=== PATIENT | male | born 1960 | race Hispanic/Latino ===

== ENCOUNTER 2021-11-06 09:04 | Emergency (ER) | payer MEDICAID, OTHER ==
[~2021-11-06] VITALS: Ht 170.2 cm; Wt 72.6 kg
[2021-11-06 09:41] LABS: HEMATOCRIT 44.2 % (42-54); LYMPHOCYTES % (AUTO) 18.4 % (21.0-51.0); MEAN CORPUSCULAR HGB CONC 33.9 g/dL (32.0-36.0); MEAN CORPUSCULAR VOLUME 97.4 fL (79-99); MONOCYTES % (AUTO) 9.6 % (3.0-13.0); NEUTROPHILS % (AUTO) 69.7 % (40.0-77.0); PLATELET COUNT (AUTO) 308 K/uL (130-400); RED BLOOD CELL COUNT(AUTO) 4.54 MIL/uL (4.50-6.20); RED CELL DISTRIBUTION WIDTH 13.7 % (11.0-15.5); WHITE BLOOD COUNT (AUTO) 8.9 K/uL (4.8-10.8)
[2021-11-06 09:52] LABS: CREATININE 0.8 mg/dL (0.5-1.5); POTASSIUM 3.9 mmol/L (3.5-5.1)
[2021-11-06 09:55] LABS: INR 0.96 (0.85-1.15); PROTHROMBIN TIME 10.5 SEC (9.6-11.6)
[2021-11-06 09:56] LABS: PARTIAL THROMBOPLASTIN TIME 30.5 SEC (26.3-35.5)
[2021-11-06 09:57] LABS: ALBUMIN 3.7 g/dL (3.5-5.0); BILIRUBIN,TOTAL 0.2 mg/dL (0.2-1.0); TOTAL PROTEIN, SERUM 7.7 g/dL (6.0-8.3)
[2021-11-06] MEDS ORDERED: ACETAMINOPHEN 500 MG TABLET PO ONE (10:00)
[2021-11-06] MEDS ORDERED: GUAIFENESIN-DM 200/20 MG 10 ML PO ONE (10:30)
[2021-11-06] MEDS ORDERED: AZITHROMYCIN 250 MG TABLET PO ONE (10:30)
[2021-11-06] MEDS ORDERED: ACET-66 PO (10:43)
[2021-11-06] MEDS ORDERED: IBUP-2070 PO (10:43)
[2021-11-06] MEDS ORDERED: D-ME118S47 PO (10:43)
[2021-11-06] MEDS ORDERED: OSEL75 PO (10:43)
[2021-11-06 10:57] VITALS: BP 104/69
[2021-11-06] MEDS ORDERED: OSELTAMIVIR PHOSPHATE 75 MG CAP PO SCH (11:00)
== END 2021-11-06 11:15 | disposition home or self-care (01) ==
LOC: EDH 09:04
DX: J10.1 Influenza due to other identified influenza virus with other respiratory manifestations (principal); J44.9 Chronic obstructive pulmonary disease, unspecified; Z20.822 Contact with and (suspected) exposure to COVID-19; E05.90 Thyrotoxicosis, unspecified without thyrotoxic crisis or storm; F17.200 Nicotine dependence, unspecified, uncomplicated
CPT/HCPCS: 36415; 71045; 80053; 83605; 84484; 85025; 85610; 85730; 87040 ×2; 87635; 87804 ×2; 93005; 99285; C9803

== ENCOUNTER → 2022-01-22 | Outpatient (CLI) | payer MEDICAID ==
[~2022-01-22] MED LIST: ACET-66 PO; D-ME118S47 PO; IBUP-2070 PO; OSEL75 PO
== END | disposition home or self-care (01) ==
LOC: RAH 12:55
DX: M47.816 Spondylosis without myelopathy or radiculopathy, lumbar region (principal); M54.50 Low back pain, unspecified; J44.9 Chronic obstructive pulmonary disease, unspecified; D84.81 Immunodeficiency due to conditions classified elsewhere
CPT/HCPCS: 72100

== ENCOUNTER → 2022-11-25 | Outpatient (CLI) | payer MEDICAID | END | disposition home or self-care (01) | LOC: SHCH 14:39 | PROVIDERS: ATTEND Internal Medicine Cardiovascular Disease | DX: I25.10 Atherosclerotic heart disease of native coronary artery without angina pectoris (principal); I73.9 Peripheral vascular disease, unspecified | CPT/HCPCS: 93925 ==

== ENCOUNTER → 2023-03-18 | Outpatient (CLI) | payer MEDICAID ==
[~2023-03-18] VITALS: Ht 167.6 cm; Wt 59.6 kg
[~2023-03-18] MED LIST changes: +ADVAIR IH; +ATORVASTATIN PO; +BROM118S48 PO; -D-ME118S47 PO; +GABA800T9 PO; +LEVO112C4 PO
[2023-03-18 11:31] LABS: BASOPHILS # (AUTO) 0.08 K/uL (0.00-0.20); BASOPHILS % (AUTO) 0.8 % (0.0-5.0); EOSINOPHILS # (AUTO) 0.95 K/uL (0.00-0.70); EOSINOPHILS % (AUTO) 9.7 % (0.0-8.0); HEMATOCRIT 46.9 % (42-54); IMMATURE GRANULOCYTE ABSOLUTE 0.02 K/uL (0-1); LYMPHOCYTES # (AUTO) 3.4 K/uL (1.0-4.8); LYMPHOCYTES % (AUTO) 34.1 % (21.0-51.0); MEAN CORPUSCULAR HEMOGLOBIN 34.4 pg (27.0-33.0); MEAN CORPUSCULAR HGB CONC 33.7 g/dL (32.0-36.0); MEAN CORPUSCULAR VOLUME 102.2 fL (79-99); MONOCYTES % (AUTO) 10.2 % (3.0-13.0); NEUTROPHILS # (AUTO) 4.4 K/uL (1.8-7.7); PLATELET COUNT (AUTO) 362 K/uL (130-400); RED BLOOD CELL COUNT(AUTO) 4.59 MIL/uL (4.50-6.20); RED CELL DISTRIBUTION WIDTH 14.3 % (11.0-15.5); WHITE BLOOD COUNT (AUTO) 9.8 K/uL (4.8-10.8)
[2023-03-18 11:35] VITALS: BP 108/69; PULSE 63; RESP 18
[2023-03-18 11:41] LABS: CREATININE 0.9 mg/dL (0.5-1.5); POTASSIUM 4.4 mmol/L (3.5-5.1)
[2023-03-18 11:42] LABS: APPEARANCE,URINE CLEAR (CLEAR); BILIRUBIN,URINE NEGATIVE (NEGATIVE); COLOR,URINE LIGHT-YELLOW (YELLOW); GLUCOSE, URINE (UA) 200 mg/dL (NEGATIVE); KETONES,URINE NEGATIVE (NEGATIVE); LEUKOCYTE ESTERASE ,URINE 250 Leu/uL (NEGATIVE); NITRATE,URINE NEGATIVE (NEGATIVE); OCCULT BLOOD,URINE SMALL (NEGATIVE); PROTEIN,URINE 20 mg/dL (NEGATIVE); UROBILINOGEN,URINE 0.2 mg/dL (0.2-1.0)
[2023-03-18 11:53] LABS: ADD UA MICROSCOPIC YES; INR < 0.93 (0.85-1.15); PROTHROMBIN TIME 10.3 SEC (9.6-11.6)
[2023-03-18 11:54] LABS: PARTIAL THROMBOPLASTIN TIME 27.4 SEC (26.3-35.5)
[2023-03-18 11:58] LABS: B-TYPE NATRIURETIC PEPTIDE 5 pg/mL (0-100)
[2023-03-18 12:00] LABS: BACTERIA,URINE RARE /HPF (None Seen); MUCUS,URINE RARE LPF (None Seen); WBC,URINE 51-100 /HPF (0-1)
== END | disposition home or self-care (01) ==
LOC: EDSTATUS 10:00 → DAH 10:00
PROVIDERS: ATTEND Internal Medicine Cardiovascular Disease
DX: Z01.818 Encounter for other preprocedural examination (principal); I25.10 Atherosclerotic heart disease of native coronary artery without angina pectoris; M47.814 Spondylosis without myelopathy or radiculopathy, thoracic region; I70.0 Atherosclerosis of aorta
CPT/HCPCS: 36415; 71045; 80048; 81001; 83880; 85025; 85610; 85730; 87088; 93005

== ENCOUNTER 2023-05-04 07:10 | Observation (INO) | payer MEDICAID ==
[2023-04-29 11:45] VITALS: BP 112/79; PULSE 75; RESP 18
[2023-04-29 11:47] LABS: BASOPHILS # (AUTO) 0.12 K/uL (0.00-0.20); BASOPHILS % (AUTO) 1.2 % (0.0-5.0); EOSINOPHILS # (AUTO) 0.73 K/uL (0.00-0.70); HEMATOCRIT 48.8 % (42-54); IMMATURE GRANULOCYTE ABSOLUTE 0.04 K/uL (0-1); LYMPHOCYTES # (AUTO) 3.8 K/uL (1.0-4.8); LYMPHOCYTES % (AUTO) 36.3 % (21.0-51.0); MEAN CORPUSCULAR HEMOGLOBIN 34.1 pg (27.0-33.0); MEAN CORPUSCULAR HGB CONC 33.4 g/dL (32.0-36.0); MEAN CORPUSCULAR VOLUME 102.1 fL (79-99); MONOCYTES # (AUTO) 1.1 K/uL (0.1-1.0); MONOCYTES % (AUTO) 10.8 % (3.0-13.0); NEUTROPHILS # (AUTO) 4.6 K/uL (1.8-7.7); NEUTROPHILS % (AUTO) 44.3 % (40.0-77.0); PLATELET COUNT (AUTO) 369 K/uL (130-400); RED BLOOD CELL COUNT(AUTO) 4.78 MIL/uL (4.50-6.20); RED CELL DISTRIBUTION WIDTH 14.6 % (11.0-15.5); WHITE BLOOD COUNT (AUTO) 10.4 K/uL (4.8-10.8)
[2023-04-29 11:48] LABS: APPEARANCE,URINE CLEAR (CLEAR); BILIRUBIN,URINE NEGATIVE (NEGATIVE); COLOR,URINE LIGHT-YELLOW (YELLOW); GLUCOSE, URINE (UA) NEGATIVE (NEGATIVE); KETONES,URINE NEGATIVE (NEGATIVE); LEUKOCYTE ESTERASE ,URINE 250 Leu/uL (NEGATIVE); NITRATE,URINE NEGATIVE (NEGATIVE); OCCULT BLOOD,URINE SMALL (NEGATIVE); PH,URINE 5.5 (5.0-8.0); PROTEIN,URINE 20 mg/dL (NEGATIVE); UROBILINOGEN,URINE 0.2 mg/dL (0.2-1.0)
[2023-04-29 11:49] LABS: ADD UA MICROSCOPIC YES
[2023-04-29 11:50] LABS: BACTERIA,URINE RARE /HPF (None Seen); MUCUS,URINE RARE LPF (None Seen); WBC,URINE 51-100 /HPF (0-1)
[2023-04-29 11:59] LABS: INR < 0.93 (0.85-1.15); PROTHROMBIN TIME 10.1 SEC (9.6-11.6)
[2023-04-29 12:00] LABS: PARTIAL THROMBOPLASTIN TIME 27.6 SEC (26.3-35.5)
[2023-04-29 12:02] LABS: CREATININE 0.9 mg/dL (0.5-1.5); POTASSIUM 3.5 mmol/L (3.5-5.1)
[2023-04-29 12:21] LABS: B-TYPE NATRIURETIC PEPTIDE 10 pg/mL (0-100)
[~2023-05-04] VITALS: Ht 167.6 cm; Wt 58.1 kg
[2023-05-04] VITALS (15 sets, daily range): BP systolic 86–145; BP diastolic 34–93; PULSE 39–69; RESP 14–28; O2SAT 97
[~2023-05-04 07:10] MED LIST changes: -ACET-66 PO; +ATOR10 PO; -ATORVASTATIN PO; -BROM118S48 PO; -IBUP-2070 PO; -OSEL75 PO
[2023-05-04] MEDS ORDERED: 0.9%NACL 1000ML 1,000 ML IV ONE (07:51)
[2023-05-04] MEDS ORDERED: SODIUM BICARB 50MEQ 50ML VIAL 50 ML ONE (11:53)
[2023-05-04] MEDS ORDERED: LIDOCAINE HCL 400MG/20ML VIAL ONE (11:53)
[2023-05-04] MEDS ORDERED: HEPARIN 10,000 UNIT/10ML (1,000 UNIT/ML) VIAL ONE (11:54)
[2023-05-04] MEDS ORDERED: MEPERIDINE-PF 25 MG/ML SYG ONE ×3 (11:54→13:29)
[2023-05-04] MEDS ORDERED: MIDAZOLAM HCL 1 MG/ML 2ML VIAL ONE ×3 (11:54→13:29)
[2023-05-04] MEDS ORDERED: NICARDIPINE 25MG INJ IV ONE (12:03)
[2023-05-04] MEDS ORDERED: IOHEXOL 350 MG/ML 100ML INFUS..BTL IV ONE (12:05)
[2023-05-04] MEDS ORDERED: ATROPINE 1MG SYG IVP ONE (13:29)
[2023-05-04] MEDS ORDERED: ASPIRIN 325MG EC TAB PO ONE (14:15)
[2023-05-04] MEDS ORDERED: TICAGRELOR 90 MG TABLET ONE (14:15)
[2023-05-04] MEDS ORDERED: EPTIFIBATIDE 2 MG/ML 10 ML VIAL IVP ONE (14:16)
[2023-05-04] MEDS ORDERED: EPTIFIBATIDE 75MG/100ML BOTTLE 100 ML IV ONE (14:16)
[2023-05-04] MEDS ORDERED: EPTIFIBATIDE 75MG/100ML BOTTLE 100 ML IV SCH (14:30)
[2023-05-04] MEDS ORDERED: 0.9%NACL 1000ML 1,000 ML IV SCH (14:30)
[2023-05-04] MEDS ORDERED: ONDANSETRON 4MG INJ IVP ONE (18:00)
[2023-05-04] MEDS ORDERED: DIPHENHYDRAMINE HCL 25 MG CAPSULE PO PRN (18:30)
[2023-05-04] MEDS ORDERED: 0.9% NACL 500ML IV.SOLN 500 ML IV SCH (18:30)
[2023-05-04] MEDS ORDERED: MAG/ALUM/SIMETH 30 ML UDCUP PO PRN (18:30)
[2023-05-04] MEDS ORDERED: NITROGLYCERIN 0.4 MG SL TAB SL PRN (18:30)
[2023-05-04] MEDS ORDERED: LACTULOSE 20 GM/30 ML UDCUP PO PRN (18:30)
[2023-05-04] MEDS ORDERED: DiphenhydrAMINE HCL 50 MG/ML VIAL IV PRN (18:30)
[2023-05-04] MEDS ORDERED: ACETAMINOPHEN 325 MG TAB PO PRN ×2 (18:30)
[2023-05-04] MEDS ORDERED: ONDANSETRON 4MG INJ IV PRN (18:30)
[2023-05-04] MEDS ORDERED: GUAIFENESIN-DM 200/20 MG 10 ML PO PRN (18:30)
[2023-05-04 18:52] LABS: BASOPHILS # (AUTO) 0.09 K/uL (0.00-0.20); BASOPHILS % (AUTO) 0.4 % (0.0-5.0); EOSINOPHILS # (AUTO) 0.02 K/uL (0.00-0.70); EOSINOPHILS % (AUTO) 0.1 % (0.0-8.0); IMMATURE GRANULOCYTE ABSOLUTE 0.19 K/uL (0-1); LYMPHOCYTES % (AUTO) 9.3 % (21.0-51.0); MEAN CORPUSCULAR VOLUME 103.3 fL (79-99); MONOCYTES # (AUTO) 0.8 K/uL (0.1-1.0); MONOCYTES % (AUTO) 3.8 % (3.0-13.0); NEUTROPHILS # (AUTO) 18.8 K/uL (1.8-7.7); NEUTROPHILS % (AUTO) 85.5 % (40.0-77.0); PLATELET COUNT (AUTO) 425 K/uL (130-400); RED BLOOD CELL COUNT(AUTO) 4.26 MIL/uL (4.50-6.20); RED CELL DISTRIBUTION WIDTH 14.8 % (11.0-15.5)
[2023-05-04] MEDS ORDERED: NACL IV ONE (19:00)
[2023-05-04 19:01] LABS: CREATININE 0.9 mg/dL (0.5-1.5); MAGNESIUM 1.9 mg/dL (1.80-2.40); POTASSIUM 4.7 mmol/L (3.5-5.1)
[2023-05-04] MEDS ORDERED: PROCHLORPERAZINE 10MG/2ML INJ IV ONE (19:30)
[2023-05-04] MEDS ORDERED: LORAZEPAM 2 MG/ML 1 ML VIAL IVP ONE (20:30)
[2023-05-04] MEDS: TICAGRELOR 90 MG TABLET PO SCH (20:41)
[2023-05-04] MEDS: FAMOTIDINE 20MG TAB PO SCH (20:41)
[2023-05-04] MEDS ORDERED: FAMOTIDINE 20MG VIAL IV PRN (21:00)
[2023-05-04] MEDS ORDERED: Gabapentin 800 MG PO SCH (21:00)
[2023-05-04] MEDS ORDERED: ATORVASTATIN 10 MG TABLET PO SCH (21:00)
[2023-05-04] MEDS ORDERED: ADVAIR IH SCH (21:00)
[2023-05-05] VITALS (8 sets, daily range): BP systolic 81–100; BP diastolic 45–67; PULSE 58–81; RESP 16–24; O2SAT 97
[2023-05-05] MEDS ORDERED: LEVOTHYROXINE 112 MCG TABLET PO SCH (06:30)
[2023-05-05 06:51] LABS: BASOPHILS # (AUTO) 0.06 K/uL (0.00-0.20); BASOPHILS % (AUTO) 0.4 % (0.0-5.0); EOSINOPHILS % (AUTO) 0.7 % (0.0-8.0); HEMATOCRIT 41.4 % (42-54); IMMATURE GRANULOCYTE ABSOLUTE 0.05 K/uL (0-1); LYMPHOCYTES # (AUTO) 3.1 K/uL (1.0-4.8); LYMPHOCYTES % (AUTO) 22.1 % (21.0-51.0); MEAN CORPUSCULAR HEMOGLOBIN 33.4 pg (27.0-33.0); MEAN CORPUSCULAR HGB CONC 34.3 g/dL (32.0-36.0); MEAN CORPUSCULAR VOLUME 97.4 fL (79-99); MONOCYTES # (AUTO) 1.4 K/uL (0.1-1.0); MONOCYTES % (AUTO) 10.2 % (3.0-13.0); NEUTROPHILS # (AUTO) 9.3 K/uL (1.8-7.7); NEUTROPHILS % (AUTO) 66.2 % (40.0-77.0); PLATELET COUNT (AUTO) 435 K/uL (130-400); RED BLOOD CELL COUNT(AUTO) 4.25 MIL/uL (4.50-6.20); RED CELL DISTRIBUTION WIDTH 14.2 % (11.0-15.5); WHITE BLOOD COUNT (AUTO) 14.1 K/uL (4.8-10.8)
[2023-05-05 07:12] LABS: MAGNESIUM 1.9 mg/dL (1.80-2.40); PHOSPHORUS 3.1 mg/dL (2.5-4.9); POTASSIUM 3.7 mmol/L (3.5-5.1)
[2023-05-05] MEDS ORDERED: ASPIRIN 81MG CHEW TAB PO SCH (09:00)
[2023-05-05] MEDS: TICAGRELOR 90 MG TABLET PO SCH (09:28)
[2023-05-05] MEDS: FAMOTIDINE 20MG TAB PO SCH (09:28)
[2023-05-05] MEDS ORDERED: ASPI-1005 PO (11:27)
[2023-05-05] MEDS ORDERED: TICA90TA PO (11:27)
[2023-05-05] MEDS ORDERED: ATORVASTATIN 20 MG TABLET PO SCH (21:00)
== END 2023-05-05 12:35 | disposition home or self-care (01) ==
LOC: DAH 07:10 → DAHIP 07:11 → 2DH 15:04
PROVIDERS: ADMIT Internal Medicine; ATTEND Internal Medicine
DX: I25.119 Atherosclerotic heart disease of native coronary artery with unspecified angina pectoris (principal); I95.81 Postprocedural hypotension; E78.5 Hyperlipidemia, unspecified; E03.9 Hypothyroidism, unspecified; M54.16 Radiculopathy, lumbar region; I10 Essential (primary) hypertension; E55.9 Vitamin D deficiency, unspecified; J44.9 Chronic obstructive pulmonary disease, unspecified; F32.A Depression, unspecified; F17.210 Nicotine dependence, cigarettes, uncomplicated; Z79.82 Long term (current) use of aspirin; Z98.890 Other specified postprocedural states
CPT/HCPCS: 80048 ×3; 83880; 85025 ×3; 85610; 85730; 87088; 81001; 36415 ×3; 71045; 93005 ×2; 92978; 92979; 0715T; 93458; 93571; 96374; 96375; 83735 ×2; 85347; 82948 ×2; 84100; 84484; 80061; C1769 ×3; C1887 ×2; C1725; C1874 ×3; A4649; C1894; C1761; C1753; Q9965 ×2; G0378 ×19; J3490 ×3; J7030; J0461; J0780; J1644 ×3; J2250 ×3; J2405; J2060; J1327 ×2; J2175 ×3; Q9967; A4215; A4223 ×3; A4222; A4221; A4663; A4216; A4606; C9600; C9601; 99156; 99157

== ENCOUNTER → 2023-07-21 | Outpatient (CLI) | payer MEDICAID ==
[~2023-07-21] MED LIST changes: +ASPI-1005 PO; +TICA90TA PO
== END | disposition home or self-care (01) ==
LOC: SHCH 12:56
PROVIDERS: ATTEND Internal Medicine Cardiovascular Disease
DX: I25.10 Atherosclerotic heart disease of native coronary artery without angina pectoris (principal); I10 Essential (primary) hypertension
CPT/HCPCS: 93306

== ENCOUNTER 2023-10-02 12:50 | Emergency (ER) | payer MEDICAID ==
[~2023-10-02] VITALS: Ht 165.1 cm; Wt 59.0 kg
[2023-10-02 13:57] LABS: BASOPHILS % (AUTO) 0.9 % (0.0-5.0); HEMATOCRIT 40.9 % (42-54); IMMATURE GRANULOCYTE ABSOLUTE 0.03 K/uL (0-1); LYMPHOCYTES # (AUTO) 2.9 K/uL (1.0-4.8); LYMPHOCYTES % (AUTO) 25.6 % (21.0-51.0); MEAN CORPUSCULAR VOLUME 96.9 fL (79-99); MONOCYTES # (AUTO) 1.4 K/uL (0.1-1.0); MONOCYTES % (AUTO) 12.4 % (3.0-13.0); NEUTROPHILS % (AUTO) 52.8 % (40.0-77.0); PLATELET COUNT (AUTO) 555 K/uL (130-400); RED BLOOD CELL COUNT(AUTO) 4.22 MIL/uL (4.50-6.20); RED CELL DISTRIBUTION WIDTH 14.3 % (11.0-15.5); WHITE BLOOD COUNT (AUTO) 11.3 K/uL (4.8-10.8)
[2023-10-02 14:10] LABS: APPEARANCE,URINE TURBID (CLEAR); BILIRUBIN,URINE MODERATE mg/dL (NEGATIVE); GLUCOSE, URINE (UA) 100 mg/dL (NEGATIVE); KETONES,URINE 5 mg/dL (NEGATIVE); LEUKOCYTE ESTERASE ,URINE MODERATE Leu/uL (NEGATIVE); NITRATE,URINE POSITIVE (NEGATIVE); OCCULT BLOOD,URINE LARGE (NEGATIVE); PH,URINE 6.5 (5.0-8.0); PROTEIN,URINE >=300 mg/dL (NEGATIVE); UROBILINOGEN,URINE >=8.0 mg/dL (0.2-1.0)
[2023-10-02 14:16] LABS: CREATININE 0.9 mg/dL (0.5-1.3); POTASSIUM 4.2 mmol/L (3.5-5.1)
[2023-10-02 14:17] LABS: ADD UA MICROSCOPIC YES; COLOR,URINE RED (YELLOW)
[2023-10-02 14:19] LABS: RBC,URINE TNTC /HPF (0-1)
[2023-10-02 14:20] LABS: BACTERIA,URINE Moderate /HPF (None Seen); WBC,URINE >100 /HPF (0-1)
[2023-10-02 14:20] LABS: ALBUMIN 2.8 g/dL (3.5-5.0); BILIRUBIN,TOTAL 0.3 mg/dL (0.2-1.0); TOTAL PROTEIN, SERUM 7.2 g/dL (6.0-8.3)
[2023-10-02 14:21] LABS: SQUAMOUS EPITHELIAL CELL,UR Few /HPF (0-2)
[2023-10-02 15:23] VITALS: BP 143/78; PULSE 73; RESP 18; O2SAT 99
[2023-10-02] MEDS: KETOROLAC 30MG VIAL (30MG/ML) IM ONE (15:41)
[2023-10-02] MEDS ORDERED: NAPR-1023 PO (15:50)
[2023-10-02] MEDS ORDERED: PHEN-847 PO (15:50)
[2023-10-02] MEDS ORDERED: DOXY100C5 PO (15:50)
== END 2023-10-02 16:11 | disposition home or self-care (01) ==
LOC: EDH 12:50
DX: N39.0 Urinary tract infection, site not specified (principal); E78.5 Hyperlipidemia, unspecified; F17.200 Nicotine dependence, unspecified, uncomplicated; Z79.82 Long term (current) use of aspirin; Z79.899 Other long term (current) drug therapy; Z98.890 Other specified postprocedural states
CPT/HCPCS: 99283; 80053; 85025; 87088; 81001; 36415; 96372; J1885

== ENCOUNTER → 2023-10-05 | Outpatient (CLI) | payer MEDICAID ==
[~2023-10-05] MED LIST changes: +DOXY100C5 PO; +NAPR-1023 PO; +PHEN-847 PO
== END | disposition home or self-care (01) ==
LOC: RAH 09:57
DX: R09.89 Other specified symptoms and signs involving the circulatory and respiratory systems (principal)
CPT/HCPCS: 93925

== ENCOUNTER 2023-11-06 11:23 | Emergency (ER) | payer MEDICAID ==
[~2023-11-06] VITALS: Ht 165.1 cm; Wt 59.0 kg
[2023-11-06 12:05] LABS: BASOPHILS # (AUTO) 0.11 K/uL (0.00-0.20); BASOPHILS % (AUTO) 0.7 % (0.0-5.0); EOSINOPHILS # (AUTO) 0.84 K/uL (0.00-0.70); EOSINOPHILS % (AUTO) 5.6 % (0.0-8.0); HEMATOCRIT 35.2 % (42-54); IMMATURE GRANULOCYTE ABSOLUTE 0.06 K/uL (0-1); LYMPHOCYTES # (AUTO) 3.3 K/uL (1.0-4.8); MEAN CORPUSCULAR HEMOGLOBIN 30.4 pg (27.0-33.0); MEAN CORPUSCULAR HGB CONC 33.2 g/dL (32.0-36.0); MEAN CORPUSCULAR VOLUME 91.4 fL (79-99); MONOCYTES # (AUTO) 1.5 K/uL (0.1-1.0); MONOCYTES % (AUTO) 9.6 % (3.0-13.0); NEUTROPHILS # (AUTO) 9.3 K/uL (1.8-7.7); NEUTROPHILS % (AUTO) 61.7 % (40.0-77.0); PLATELET COUNT (AUTO) 647 K/uL (130-400); RED BLOOD CELL COUNT(AUTO) 3.85 MIL/uL (4.50-6.20); RED CELL DISTRIBUTION WIDTH 14.6 % (11.0-15.5)
[2023-11-06 12:07] LABS: APPEARANCE,URINE TURBID (CLEAR); BILIRUBIN,URINE NEGATIVE (NEGATIVE); COLOR,URINE BROWN (YELLOW); GLUCOSE, URINE (UA) NEGATIVE (NEGATIVE); KETONES,URINE NEGATIVE (NEGATIVE); LEUKOCYTE ESTERASE ,URINE 500 Leu/uL (NEGATIVE); NITRATE,URINE NEGATIVE (NEGATIVE); OCCULT BLOOD,URINE LARGE (NEGATIVE); PH,URINE 6.5 (5.0-8.0); PROTEIN,URINE 300 mg/dL (NEGATIVE); UROBILINOGEN,URINE 0.2 mg/dL (0.2-1.0)
[2023-11-06 12:15] LABS: CREATININE 1.2 mg/dL (0.5-1.3); POTASSIUM 4.2 mmol/L (3.5-5.1)
[2023-11-06 12:17] LABS: INR <= 0.93 (0.85-1.15); PROTHROMBIN TIME 10.2 SEC (9.6-11.6)
[2023-11-06 12:17] LABS: ADD UA MICROSCOPIC YES
[2023-11-06 12:19] LABS: PARTIAL THROMBOPLASTIN TIME 26.5 SEC (26.3-35.5)
[2023-11-06 12:21] LABS: ALBUMIN 3.1 g/dL (3.5-5.0); BILIRUBIN,TOTAL 0.2 mg/dL (0.2-1.0); TOTAL PROTEIN, SERUM 7.9 g/dL (6.0-8.3)
[2023-11-06 12:35] LABS: BACTERIA,URINE MOD /HPF (None Seen); MUCUS,URINE MOD LPF (None Seen); RBC,URINE TNTC /HPF (0-1); WBC CLUMP MANY /HPF (0-1); WBC,URINE TNTC /HPF (0-1); YEAST,URINE BUDDING RARE /HPF (None Seen)
[2023-11-06] MEDS ORDERED: AMOX1TAB16 PO (12:47)
[2023-11-06] MEDS: AMOX/CLAV 875/125MG TAB PO ONE (12:51)
[2023-11-06 12:57] VITALS: BP 124/71; PULSE 78; RESP 18; O2SAT 98
== END 2023-11-06 13:00 | disposition home or self-care (01) ==
LOC: EDH 11:23
DX: N30.01 Acute cystitis with hematuria (principal); D64.9 Anemia, unspecified; F17.200 Nicotine dependence, unspecified, uncomplicated; Z79.82 Long term (current) use of aspirin; Z79.899 Other long term (current) drug therapy; Z98.890 Other specified postprocedural states
CPT/HCPCS: 36415; 80053; 81001; 85025; 85610; 85730; 87088

== ENCOUNTER → 2024-03-25 | Outpatient (CLI) | payer MEDICAID ==
[~2024-03-25] MED LIST changes: +AMOX1TAB16 PO; +GABA-1555 PO; -GABA800T9 PO; +IOHEXOL-350 75 ML VIAL IV ONE
== END | disposition home or self-care (01) ==
LOC: RAH 07:51
DX: N13.39 Other hydronephrosis (principal); C67.8 Malignant neoplasm of overlapping sites of bladder; D84.821 Immunodeficiency due to drugs; D84.81 Immunodeficiency due to conditions classified elsewhere
CPT/HCPCS: 74177; Q9967

== ENCOUNTER 2024-06-05 11:35 | Emergency (ER) | payer MEDICAID ==
[~2024-06-05] VITALS: Ht 177.8 cm; Wt 63.5 kg
[~2024-06-05 11:35] MED LIST changes: +ADV250 IH; +ALBU18HF7 IH; -AMOX1TAB16 PO; +CYCL-309 PO; -DOXY100C5 PO; +HYDR-4068 PO; -IOHEXOL-350 75 ML VIAL IV ONE; +MIRT-22 PO; +ONDA4SOL PO; +POTA-81 PO; +PREG75 PO; +miDODRine HCL 5 MG TABLET PO
[2024-06-05 12:32] LABS: BASOPHILS # (AUTO) 0.02 K/uL (0.00-0.20); BASOPHILS % (AUTO) 0.1 % (0.0-5.0); IMMATURE GRANULOCYTE ABSOLUTE 0.17 K/uL (0-1); LYMPHOCYTES # (AUTO) 2.1 K/uL (1.0-4.8); LYMPHOCYTES % (AUTO) 14.2 % (21.0-51.0); MEAN CORPUSCULAR HGB CONC 32.8 g/dL (32.0-36.0); MEAN CORPUSCULAR VOLUME 85.3 fL (79-99); MONOCYTES # (AUTO) 0.8 K/uL (0.1-1.0); MONOCYTES % (AUTO) 5.3 % (3.0-13.0); NEUTROPHILS # (AUTO) 11.9 K/uL (1.8-7.7); NEUTROPHILS % (AUTO) 79.3 % (40.0-77.0); NUCLEATED RED BLOOD CELLS 2.5 % (0.0-0.19); PLATELET COUNT (AUTO) 251 K/uL (130-400); RED BLOOD CELL COUNT(AUTO) 2.25 MIL/uL (4.50-6.20); RED CELL DISTRIBUTION WIDTH 18.2 % (11.0-15.5)
[2024-06-05 12:44] LABS: PROTHROMBIN TIME 11.2 SEC (9.6-11.6)
[2024-06-05 12:46] LABS: PARTIAL THROMBOPLASTIN TIME 30.1 SEC (26.3-35.5)
[2024-06-05 12:47] LABS: CREATININE 2.3 mg/dL (0.5-1.3); POTASSIUM 3.3 mmol/L (3.5-5.1)
[2024-06-05] MEDS: 0.9%NACL 1000ML 1,000 ML IV ONE (12:50)
[2024-06-05] MEDS: acetaMINOPHEN 500 MG TABLET PO ONE (12:50)
[2024-06-05 12:51] LABS: ALBUMIN 1.8 g/dL (3.5-5.0); BILIRUBIN,DIRECT 0.2 mg/dL (0.0-0.3); BILIRUBIN,TOTAL 0.5 mg/dL (0.2-1.0); TOTAL PROTEIN, SERUM 6.5 g/dL (6.0-8.3)
[2024-06-05 12:57] LABS: HEMATOCRIT 19.2 % (42-54)
[2024-06-05 13:28] LABS: SARS-CoV-2, RNA, NAAT NEGATIVE SARS CoV-2 (NEGATIVE)
[2024-06-05 13:33] LABS: INFLUENZA TYPE A Negative For Type A (NEGATIVE); INFLUENZA TYPE B Negative For Type B (NEGATIVE)
--- NOTE | 2024-06-05 13:42 | HMCIMG ---
INDICATION: Shortness of breath TECHNIQUE: CHEST 1VW COMPARISON: 04/29/2023 FINDINGS/IMPRESSION: Prominent bilateral interstitial markings which may represent bronchitis or vascular congestion in the proper clinical setting. Right chest port is seen place. Cardiac silhouette is within normal limits. Mild degenerative changes of the spine. The visualized upper abdomen appears unremarkable.
--- NOTE | 2024-06-05 13:49 | HMCIMG ---
CT ABDOMEN/PELVIS W/O CONTRAST INDICATION: Abdominal pain TECHNIQUE: CT ABDOMEN/PELVIS W/O CONTRAST. Oral contrast was not given. Coronal and sagittal reformats were performed. CT was performed with one or more of the following dose reduction techniques: Automated exposure control, adjustment of the mA and/or kV according to the patient's size, or use of the iterative reconstruction technique. Comparison: 04/27/2024 FINDINGS: The noncontrast nature this study limits evaluation of abdominal viscera. Mild atelectatic changes are seen in the lung bases. There is hepatic steatosis. No calcified gallstone is seen. The spleen is not visualized. There is no acute findings in the pancreas. There is fatty atrophy of the pancreas. Bilateral nephrostomy tubes are seen in adequate position. There is left hydronephrosis concerning for tube malfunctioning. Large heterogeneous mass is seen in the urinary bladder concerning for malignancy. There is constipation. Diverticulosis coli without CT evidence of acute diverticulitis. Fluid-filled loops of small bowel which may represent enteritis the proper clinical setting.. No free abdominal air is seen. Normal appendix . Atherosclerotic changes of the aorta with calcified plaques. Degenerative changes of the spine are seen. IMPRESSION: 1. Bilateral nephrostomy tubes are seen in adequate position. There is left hydronephrosis concerning for tube malfunctioning. Correlate clinically. 2. Large heterogeneous mass is again seen in the left posterolateral urinary bladder concerning for malignancy. 3. There is constipation. Diverticulosis coli without CT evidence of acute diverticulitis. 4. Fluid-filled loops of small bowel which may represent enteritis the proper clinical setting..
[2024-06-05 13:53] LABS: APPEARANCE,URINE CLOUDY (CLEAR); BACTERIA,URINE RARE /HPF (None Seen); BILIRUBIN,URINE NEGATIVE (NEGATIVE); COLOR,URINE YELLOW (YELLOW); GLUCOSE, URINE (UA) NEGATIVE (NEGATIVE); KETONES,URINE NEGATIVE (NEGATIVE); LEUKOCYTE ESTERASE ,URINE 500 Leu/uL (NEGATIVE); NITRATE,URINE NEGATIVE (NEGATIVE); NON-SQUAMOUS EPITHELIAL CELL 3 /HPF (0-2); OCCULT BLOOD,URINE SMALL (NEGATIVE); PH,URINE 6.5 (5.0-8.0); PROTEIN,URINE 100 mg/dL (NEGATIVE); UROBILINOGEN,URINE 0.2 mg/dL (0.2-1.0); WBC,URINE TNTC /HPF (0-1); YEAST,URINE BUDDING FEW /HPF (None Seen)
[2024-06-05] MEDS: ceFEPime HCL 1 GM VIAL IVPB SCH (14:17)
--- NOTE | 2024-06-05 15:24 | EKG ---
[facility] Test Date: 2024-06-05 Test Time: 13:07:41 Pat Name: CEASAR GABY Department: ED Room: Gender: M [employer] Manager: [id number] : 1960 Requested By: MAGDA DUKES Order Number: [id number] Reading MD: Ceasar Oneal Measurements Intervals [place] Rate: 88 P: 91 VT: 159 QRS: 73 QRSD: 108 T: 29 QT: 406 QTc: 491 Interpretive Statements Sinus rhythm Ventricular premature complex Inferior infarct, old Consider anterior infarct Compared to ECG 04/30/2024 21:47:37 Ventricular premature complex(es) now present Sinus tachycardia no longer present Myocardial infarct finding still present Electronically Signed On 06-05-2024 17:02:43 SECOND HAND by Ceasar Oneal Please click the below link to view image of tracing.
--- NOTE | 2024-06-05 16:26 | ERN ---
General Chief Complaint: Fever Stated Complaint: FEVER Time Seen by MD: 11:37 History of Present Illness Initial Comments 64-year-old male past medical history of nephrostomy tube secondary to bladder cancer came in for left flank pain and fever chills. Patient otherwise has no concerns. Allergies: Coded Allergies: No Known Drug Allergies (Unverified Allergy, Unknown, 11/06/21) Home Meds Active Scripts [miDODRine HCL 5 MG TABLET] 5 MG TABLET No Conflict Check, 10 MG PO TID, #30 TAB 0 Refills Prov:MARTI CARLSON SUSTAINABILITY COACH 05/03/24 Naproxen (Naproxen) 500 Mg Tablet, 500 MG PO BID for 5 Days, #10 TAB Prov:NETO XIAO 10/02/23 Phenazopyridine HCl (Pyridium) 200 Mg Tab, 200 MG PO TID for 3 Days, #9 TAB Prov:NETO XIAO 10/02/23 Ticagrelor (Brilinta) 90 Mg Tablet, 90 MG PO BID, #60 TAB 0 Refills Prov:MAXIMUS ANAYA MD 05/05/23 Aspirin (ASPIRIN 81MG CHEW TAB) 81 Mg Tab.chew, 81 MG PO DAILY, #30 TAB.CHEW 0 Refills Prov:MAXIMUS ANAYA MD 05/05/23 Reported Medications Albuterol Sulfate (Ventolin Hfa) 90 Mcg Hfa.aer.ad, 2 PUFF IH Q4HPRN PRN for wheezing for 30 Days, #18 GM 0 Refills 05/02/24 Fluticasone/Salmeterol (Advair Hfa 230-21 Mcg Inhaler) 12 Gm Hfa.aer.ad, 1 INH IH AD, INHALER 05/02/24 Potassium Chloride (K-Tab ER) 20 Meq Tablet.er, 20 MEQ PO DAILY, TAB 05/02/24 Ondansetron HCl (Ondansetron HCl) 4 Mg/5 Ml Solution, 4 MG PO Q8H PRN for vomiting/nausa, ML 05/02/24 Mirtazapine (Mirtazapine) 15 Mg Tablet, 1 TAB PO DAILY for 30 Days, #30 TAB 0 Refills 05/02/24 Cyclobenzaprine HCl (Cyclobenzaprine HCl) 10 Mg Tablet, 1 TAB PO TID for muscle spasms for 10 Days, #30 TAB 0 Refills 05/02/24 Pregabalin (Lyrica) 75 Mg Cap, 1 CAP PO TID for 30 Days, #60 CAP 0 Refills 05/02/24 Hydrocodone/Acetaminophen (Hydrocodon-Acetaminophn 10-325) 10 Mg-325 Mg Tablet, 1 TAB PO TIDP PRN for pain for 30 Days, #90 TAB 0 Refills 05/02/24 Atorvastatin Calcium (LIPITOR) 20 Mg Tab, 20 MG PO HS, TAB 04/29/23 [Advair] No Conflict Check, 1 PUFF IH BID 03/18/23 Gabapentin (Gabapentin) 800 Mg Tablet, 800 MG PO BID, TAB 03/18/23 Levothyroxine Sodium (Levothyroxine) 112 Mcg Capsule, 112 MCG PO AM, CAP 03/18/23 Past Medical History Past Medical History: Diabetes-Type II, High Cholesterol, Hypertension, Other Medical History Other: BLADDER AND KIDNEY CANCER Past Surgical History: Unknown Surgical History Other: HEART STENT Social History Social History: Smokers, Lives with family ROS Dictation CONSTITUTIONAL: Negative except for HPI HEAD/FACE: Negative except for HPI EENT: Negative except for HPI RESPIRATORY: Negative except for HPI GASTROINTESTINAL/ABDOMINAL: Negative except for HPI GENITOURINARY: Negative except for HPI MUSCULOSKELETAL: Negative except for HPI INTEGUMENTARY: Negative except for HPI NEUROLOGICAL/PSYCH: Negative except for HPI HEMATOLOGIC/LYMPHATIC: Negative except for HPI All Systems Negative, Except as noted above. 13 point review of systems assessed and all negative except for above. Physical Exam Physical Exam Dictation Vital Signs reviewed General Appearance: Alert, oriented x 3, no acute distress, well developed, nourished. Head and Face: non-traumatic. Eyes: PERRL, pink conjunctivas, eyelid no trauma, anterior chamber with arcus senilis. Ears: Pinnas intact and no signs of trauma or erythema ear canals clear and no discharge TM no erythema Nose: No discharge, no bleeding. Oropharynx: Mouth normal, tongue pink, pharynx clear,no erythema, tonsils no exudates, no abscesses noted, mucous membrane moist Neck: Supple, non-tender, no thyromegaly, no masses, no JVD, no bruits Breast:Deferred Chest:No tenderness, no crepitus, no paradoxical movement, no retractions Lungs:Clear, well-ventilated, symmetric, no rales, no wheezing, no rhonchi, no stridor, good breath sounds bilaterally Heart: Regular rate, regular rhythm, no murmur, no gallops Vascular: no peripheral edema, Abdomen: Soft, positive bowel sounds, nondistended, no guarding, nontender, no rebound, no masses no hepatomegaly, no splenomegaly, no Cha's sign, no hernias. Rectal: Deferred Genital: Deferred Neurological: Normal speech, motor function intact, sensory function intact Musculoskeletal: Neck nontender, full range of motion, back nontender, full range of motion, Extremities: nontender, full range of motion Skin: Color pink, dry, no turgor, no rash, no lacerations, no abrasions, no contusions. Lymphatic: Deferred Results Laboratory and Microbiology Lab and Micro Result Laboratory Tests Test 06/05/24 12:11 06/05/24 12:45 06/05/24 13:10 White Blood Count 15.0 K/uL (4.8-10.8) H Red Blood Count 2.25 MIL/uL (4.50-6.20) L Hemoglobin 6.3 g/dL (14.0-18.0) *L Hematocrit 19.2 % (42-54) *L Mean Corpuscular Volume 85.3 fL (79-99) Mean Corpuscular Hemoglobin 28.0 pg (27.0-33.0) Mean Corpuscular Hemoglobin Concent 32.8 g/dL (32.0-36.0) Red Cell Distribution Width 18.2 % (11.0-15.5) H Platelet Count 251 K/uL (130-400) Mean Platelet Volume 11.4 fL (7.5-10.5) H Immature Granulocyte % (Auto) 1.1 % (0-1) H Neutrophils (%) (Auto) 79.3 % (40.0-77.0) H Lymphocytes (%) (Auto) 14.2 % (21.0-51.0) L Monocytes (%) (Auto) 5.3 % (3.0-13.0) Eosinophils (%) (Auto) 0.0 % (0.0-8.0) Basophils (%) (Auto) 0.1 % (0.0-5.0) Neutrophils # (Auto) 11.9 K/uL (1.8-7.7) H Lymphocytes # (Auto) 2.1 K/uL (1.0-4.8) Monocytes # (Auto) 0.8 K/uL (0.1-1.0) Eosinophils # (Auto) 0.00 K/uL (0.00-0.70) Basophils # (Auto) 0.02 K/uL (0.00-0.20) Absolute Immature Granulocyte (auto 0.17 K/uL (0-1) Nucleated Red Blood Cells 2.5 % (0.0-0.19) H Red Blood Cell Morphology See comments Prothrombin Time 11.2 SEC (9.6-11.6) Prothromb Time International Ratio 1.00 (0.85-1.15) Activated Partial Thromboplast Time 30.1 SEC (26.3-35.5) Sodium Level 132 mmol/L (136-145) L Potassium Level 3.3 mmol/L (3.5-5.1) L Chloride Level 99 mmol/L (101-111) L Carbon Dioxide Level 23 mmol/L (21-32) Blood Urea Nitrogen 22 mg/dL (7-18) H Creatinine 2.3 mg/dL (0.5-1.3) H Glomerular Filtration Rate Calc 31 mL/min (>90) Random Glucose 112 mg/dL (70-105) H Lactic Acid Level 2.2 mmol/L (0.8-2.5) Total Calcium 8.0 mg/dL (8.5-10.1) L Total Bilirubin 0.5 mg/dL (0.2-1.0) Direct Bilirubin 0.2 mg/dL (0.0-0.3) Aspartate Amino Transf (AST/SGOT) 63 U/L (10-37) H Alanine Aminotransferase (ALT/SGPT) 58 U/L (12-78) Alkaline Phosphatase 318 U/L (50-136) H Total Creatine Kinase 24 U/L (21-232) Troponin I High Sensitivity 29 ng/L (4-75) Total Protein 6.5 g/dL (6.0-8.3) Albumin 1.8 g/dL (3.5-5.0) L Procalcitonin 2.54 ng/mL (0.05-0.5) H Influenza Type A Antigen Negative For Type A Influenza Type B Antigen Negative For Type B SARS-CoV-2, RNA, NAAT NEGATIVE SARS CoV-2 Urine Color YELLOW (YELLOW) Urine Appearance CLOUDY (CLEAR) H Urine pH 6.5 (5.0-8.0) Urine Specific [place] 1.013 (1.001-1.031) Urine Protein 100 mg/dL (NEGATIVE) H Urine Glucose (UA) NEGATIVE mg/dL (NEGATIVE) Urine Ketones NEGATIVE mg/dL (NEGATIVE) Urine Occult Blood SMALL (NEGATIVE) H Urine Nitrate NEGATIVE (NEGATIVE) Urine Bilirubin NEGATIVE mg/dL (NEGATIVE) Urine Urobilinogen 0.2 mg/dL (0.2-1.0) Urine Leukocyte Esterase 500 Cathryn/uL (NEGATIVE) H Urine RBC 2-5 /HPF (0-1) H Urine WBC TNTC /HPF (0-1) H Urine Non-Squamous Epithelial Cells 3 /HPF (0-2) Urine Bacteria RARE /HPF (None Seen) Urine Yeast FEW /HPF (None Seen) MDM MDM: Differential diagnosis: Rationale: Tests considered and ordered secondary to shared decision making i nclude: Previous outside records reviewed: Old ER visits. Risk of complication and/or morbidity or mortality of patient management: None Medications-Per medication reconciliation Need for hospitalization: Patient does meet criteria for hospitalization. Need for emergency major/minor surgery: No There are no social concerns with this patient. Prescription drug management Prescriptions will include symptomatic care Patient's prior external medical records from other ER visits were reviewed by me as indicated. Prior testing and results from previous visits were reviewed. Prior tests were taken into account with medical decision making and resource utilization, independent historian/historians were used to obtain complete medical history. I independently interpreted the test that were performed, results were reviewed by me and considered findings on radiology if ordered. Medical management and examination interpretation discussions were had by me with other qualified healthcare professionals as indicated for the patient's care. Pertinently there was no Urology coverage at our facility patient will be transferred for neurological evaluation as left-sided nephrostomy tube is not working and there is left hydronephrosis patient needs urological evaluation. And has been accepted at [facility] for urological evaluation. Patient is a four patient understands and agrees with the plan of care. ED Course Orders Procedure Category Date Status Time 12 Lead Ekg Tracing- EKG 06/05/24 Resulted Technical 11:37 Basic Metabolic Panel LAB 06/05/24 Complete 11:37 Cbc With Differential LAB 06/05/24 Complete 11:37 Covid Rna Naat LAB 06/05/24 Complete 11:37 Creatine Kinase, Total LAB 06/05/24 Complete 11:37 Hepatic Function Panel LAB 06/05/24 Complete 11:37 Influenza Type A & B, LAB 06/05/24 Complete Rapid 11:37 Lactic Acid LAB 06/05/24 Complete 11:37 Procalcitonin LAB 06/05/24 Complete 11:37 Pt And Ptt LAB 06/05/24 Complete 11:37 Troponin I High LAB 06/05/24 Complete Sensitivity 11:37 Urinalysis LAB 06/05/24 Complete W/Microscopic 11:37 Chest 1vw RAD 06/05/24 Resulted 11:37 Acetaminophen 500mg PHA 06/05/24 Complete Tab (Tylenol 500mg T 13:00 0.9%Nacl 1000ml (Ns PHA 06/05/24 Complete 1000ml) 13:00 Type And Screen BBK 06/05/24 Complete 13:01 Consent For CPOE 06/05/24 Transmitted Transfusion 13:01 Ct Abdomen/Pelvis W/O CT 06/05/24 Resulted Contrast 13:10 Rbc-No Active Bleeding BBK 06/05/24 Complete 13:43 Culture Urine [place] 06/05/24 In Process 13:54 Cefepime Hcl 1 Gm PHA 06/05/24 In Process Vial (Maxipime 1 Gm Vi 14:30 Lactic Acid (Removed) LAB 06/05/24 Logged 16:16 Current Medications Medications (Trade) Dose Ordered Sig/Jenni Route PRN Reason Start Time Stop Time Status Last Admin Dose Admin Acetaminophen (TYLenol 500MG TAB) 500 mg ONCE ONCE PO 06/05/24 13:00 06/05/24 13:01 DC 06/05/24 12:50 Cefepime HCl (MAXipime 1 GM vial) 1 gm ONCE IVPB 06/05/24 14:30 06/15/24 14:29 06/05/24 14:17 Sodium Chloride 1,000 ml @ 0 mls/hr ONCE ONCE IV 06/05/24 13:00 06/05/24 13:01 DC 06/05/24 12:50 Vital Signs Date Time Temp Pulse Resp B/P (MAP) Pulse Ox O2 Delivery O2 Flow Rate FiO2 06/05/24 16:48 97.5 78 18 103/61 97 Room Air* 0 06/05/24 14:00 99.0 78 16 103/62 98 Room Air* 0 06/05/24 12:45 99.9 82 16 101/59 96 Room Air* 0 06/05/24 11:36 102.2 104 24 101/63 98 Room Air 0 DX & DISP Disposition: Transfer Departure Impression: Primary Impression: Hydronephrosis Additional Impression: Sepsis Condition: Stable Referrals: MANN OLIVIER MD (PCP) MAGDA DUKES MD Jun 05, 2024 16:26
--- NOTE | 2024-06-05 16:36 | NUR ---
MEMORANDUM OF TRANSFER Notified by Ilene Lewis MD, and LEOBARDO Power about request for transfer for Urology services for diagnosis of obstructed left nephrostomy tube. Confirmed with patient about physician request for transfer and agreed with continuing process. Spoke with [facility] to initiate request at 1623.
--- NOTE | 2024-06-05 20:38 | NUR ---
[facility] CONTACTED FOR TRANSFER TO [facility]
[2024-06-05 20:41] VITALS: BP 107/63; PULSE 95; RESP 17; TEMP 98.2; O2SAT 96
--- NOTE | 2024-06-05 20:55 | NUR ---
REPORT CALLED TO JIMMY RN AT [facility] [place]- . PATIENT'S ROOM WILL BE [id number]
== END 2024-06-05 21:22 | disposition short-term general hospital (02) ==
LOC: EDH 11:35
DX: A41.9 Sepsis, unspecified organism (principal); N13.30 Unspecified hydronephrosis; E11.9 Type 2 diabetes mellitus without complications; E78.00 Pure hypercholesterolemia, unspecified; F17.200 Nicotine dependence, unspecified, uncomplicated; I10 Essential (primary) hypertension; Z20.822 Contact with and (suspected) exposure to COVID-19; Z79.02 Long term (current) use of antithrombotics/antiplatelets; Z79.51 Long term (current) use of inhaled steroids; Z79.82 Long term (current) use of aspirin; Z79.899 Other long term (current) drug therapy; Z95.5 Presence of coronary angioplasty implant and graft
CPT/HCPCS: 99285; 36430; 74176; 96365; 71045; 87635; 96361; 82550; 80076; 84484; 80048; 85025; 85610; 85730; 86850; 86900; 86901; 86923; 87086 ×3; 87186 ×2; 87804 ×2; 83605 ×2; 81001; 36415; 93005; 84145; P9016; J7030; J0692